=== PATIENT | female | born 1955 | race Caucasian/White ===

== ENCOUNTER → 2018-08-12 | Outpatient (CLI) | payer OTHER ==
[2018-08-12 14:26] LABS: Basophils # (A) 0.1 k/uL (0-0.2); Basophils % (A) 1 %; Eosinophils # (A) 0.1 k/uL (0-0.7); Eosinophils % (A) 2 %; HCT 43.8 % (34.0-46.0); HGB 13.9 gm/dL (11.4-16.0); Lymphocytes # (A) 2.6 k/uL (1.0-4.8); Lymphocytes % (A) 33 %; MCH 29.1 pg (25.0-35.0); MCHC 31.8 g/dL (31.0-37.0); MCV 91.5 fL (80.0-100.0); Mean Platelet Volume 8.2; Monocytes # (A) 0.4 k/uL (0-1.0); Monocytes % (A) 5 %; Neutrophils # (A) 4.4 k/uL (1.3-7.7); Neutrophils % (A) 56 %; Platelet Count 217 k/uL (150-450); RBC 4.79 m/uL (3.80-5.40); RDW 12.7 % (11.5-15.5); WBC 7.7 k/uL (3.8-10.6)
--- NOTE | 2018-08-12 14:37 | CT ---
EXAMINATION TYPE: CT brain wo con DATE OF EXAM: 08/12/2018 COMPARISON: None HISTORY: Transient global amnesia CT DLP: 961.00 mGycm Automated exposure control for dose reduction was used. TECHNIQUE: CT scan of the head is performed without contrast. FINDINGS: There is no acute intracranial hemorrhage, mass effect, or midline shift identified. Cerebellar tonsi ls are noted to be low-lying. No suspicious extra-axial fluid collection. Atherosclerosis of the intr acranial vasculature is noted. The ventricles and sulci are within normal limits in size. The globe s are intact and the visualized sinuses are clear. IMPRESSION: No acute intracranial hemorrhage, mass effect, or midline shift is seen.
[2018-08-12 14:41] LABS: ALT 25 U/L (9-52); AST 30 U/L (14-36); Albumin 4.6 g/dL (3.5-5.0); Alkaline Phosphatase 107 U/L (38-126); Anion Gap 8 mmol/L; Blood Urea Nitrogen 15 mg/dL (7-17); Calcium 9.9 mg/dL (8.4-10.2); Carbon Dioxide 29 mmol/L (22-30); Chloride 106 mmol/L (98-107); Glucose 101 mg/dL (74-99); Potassium 4.8 mmol/L (3.5-5.1); Sodium 143 mmol/L (137-145); Total Bilirubin 0.3 mg/dL (0.2-1.3)
--- NOTE | 2018-08-12 14:50 | US ---
EXAMINATION TYPE: US carotid duplex BILAT DATE OF EXAM: 08/12/2018 COMPARISON: CT brain CLINICAL HISTORY: G45.4 Transient global amnesia. Memory loss episode for 15 minutes EXAM MEASUREMENTS: RIGHT: Peak Systolic Velocity (PSV) cm/sec ----- Right CCA: 63.9 ----- Right ICA: 85.5 ----- Right ECA: 62.3 ICA/CCA ratio: 1.3 RIGHT: End Diastole cm/sec ----- Right CCA: 21.0 ----- Right ICA: 29.3 ----- Right ECA: 7.3 LEFT: Peak Systolic Velocity (PSV) cm/sec ----- Left CCA: 55.7 ----- Left ICA: 61.2 ----- Left ECA: 60.8 ICA/CCA ratio: 1.1 LEFT: End Diastole cm/sec ----- Left CCA: 18.3 ----- Left ICA: 26.0 ----- Left ECA: 9.3 VERTEBRALS (direction of flow): Right Vertebral: Antegrade Left Vertebral: Antegrade Rhythm: Normal Mild intimal wall changes noted at bilateral ICA, but PSV is wnl bilaterally. IMPRESSION: Mild degree of grayscale atheromatous plaquing with no sonographically evident hemodynam ically significant stenosis within either visualized carotid arterial system.
== END ==
LOC: RADCTMAIN 13:32
PROVIDERS: ATTEND Physician Assistant
DX: I70.90 Unspecified atherosclerosis (principal); G45.4 Transient global amnesia; R42 Dizziness and giddiness
CPT/HCPCS: 36415; 70450; 80053; 85025; 93880

== ENCOUNTER → 2024-04-04 | Outpatient (CLI) | payer MEDICARE, BC ==
--- NOTE | 2024-04-04 13:17 | XR ---
EXAMINATION TYPE: XR knee complete LT DATE OF EXAM: 04/04/2024 CLINICAL HISTORY: pain TECHNIQUE: Three views of the left knee are obtained. COMPARISON: None. FINDINGS: There is no acute fracture/dislocation. The tri-compartment joint spaces appear within no rmal limits. The overlying soft tissue appears unremarkable. IMPRESSION: There is no acute fracture or dislocation ICD 10 NO FRACTURE, INITIAL EVALUATION
--- NOTE | 2024-04-04 13:17 | XR ---
EXAMINATION TYPE: XR Hip Complete LT DATE OF EXAM: 04/04/2024 CLINICAL HISTORY: pain TECHNIQUE: AP and frogleg views of the left hip are obtained. COMPARISON: None. FINDINGS: There is no acute fracture/dislocation evident. The joint space appears within normal li mits. The overlying soft tissue appears unremarkable. IMPRESSION: 1. There is no acute fracture or dislocation.ICD 10 NO FRACTURE, INITIAL EVALUATION
== END | disposition home or self-care (01) ==
LOC: RADXRMAIN 12:21
PROVIDERS: ATTEND Family Medicine
DX: M25.552 Pain in left hip (principal); M25.562 Pain in left knee
CPT/HCPCS: 73502

== ENCOUNTER → 2024-04-04 | Outpatient (CLI) | payer MEDICARE, BC | END | disposition home or self-care (01) | LOC: RADXRMAIN 12:10 | PROVIDERS: ATTEND Family Medicine | DX: Z53.9 Procedure and treatment not carried out, unspecified reason (principal) ==

== ENCOUNTER → 2024-04-20 | Outpatient (CLI) | payer MEDICARE, BC ==
--- NOTE | 2024-04-23 16:31 | BD ---
EXAMINATION TYPE: Axial Bone Density DATE OF EXAM: 04/20/2024 CLINICAL HISTORY: 68 years old Female. ICD-10 CODE: M85.80 OTH DISRD OF BONE DENSITY Height: 66.2in Weight: 126lb FRAX RISK QUESTIONS: History of Fracture in Adulthood: yes Secondary Osteoporosis: RISK FACTORS HISTORY OF: Spine Fracture: sacrum/coccyx When: 2022 MEDICATIONS: EXAM MEASUREMENTS: Bone mineral densitometry was performed using the [employer]. Bone mineral density as measured about the Lumbar spine is: ----- L1-L4(G/cm2): 1.004 T Score Values are as follows: ----- L1: -1.3 ----- L2: -1.3 ----- L3: -1.4 ----- L4: -1.9 ----- L1-L4: -1.5 Z Score Values are as follows: ----- L1: 0.6 ----- L2: 0.6 ----- L3: 0.5 ----- L4: 0.0 ----- L1-L4: 0.4 First dexa at [facility] Bone mineral density about the R hip (g/cm2): 0.758 Bone mineral density about the L hip (g/cm2): 0.764 T Score values are as follows: -----R Neck: -2.1 -----L Neck: -2.0 -----R Total: -2.0 -----L Total: -1.9 Z Score values are as follows: -----R Neck: -0.3 -----L Neck: -0.2 -----R Total: -0.4 -----L Total: -0.4 First dexa at [facility] FRAX%s: The graph provided illustrates a 17.1% chance for a major osteoporotic fx and a 3.4% chance f or the hips probability for fx in 10 years time. IMPRESSION: Osteopenia (T Score between -2.5 and -1). There is slightly increased risk of fracture and the patient may be considered for treatment. Re-Screen 2-5 years. NOTE: T-SCORE=SD OF THE YOUNG ADULT MEAN.
== END | disposition home or self-care (01) ==
LOC: RADBDWWP 09:03
PROVIDERS: ATTEND Family Medicine
DX: M85.89 Other specified disorders of bone density and structure, multiple sites (principal)
CPT/HCPCS: 77080

== ENCOUNTER → 2024-09-06 | Outpatient (CLI) | payer MEDICARE, BC ==
[~2024-09-06] MED LIST: SODIUM CHLORIDE 0.9% 250 ML in EMPTY BAG 1 BAG IV PRN
[2024-09-06 14:10] VITALS: BP 158/68; PULSE 80; RESP 16; TEMP 98.2
[2024-09-06] MEDS: SODIUM CHLORIDE 0.9% 500 ML 500 ML in EMPTY BAG 1 BAG IV PRN (14:11)
[2024-09-06] MEDS: ZOLEDRONIC ACID 5 MG in SODIUM CHLORIDE 0.9% 100 ML IV NR (14:14)
== END ==
LOC: PROCWHC3 13:31
PROVIDERS: ATTEND Family Medicine
DX: M81.0 Age-related osteoporosis without current pathological fracture (principal)
CPT/HCPCS: 96365; J3489

== ENCOUNTER → 2025-03-22 | Outpatient (CLI) | payer MEDICARE, BC ==
[2025-03-22 12:02] LABS: African American GFR (CKD) >90 (>60 ml/min/1.73 sqM); Blood Urea Nitrogen 26 mg/dL (7-17); Non-African American GFR(CKD) 81 (>60 ml/min/1.73 sqM)
--- NOTE | 2025-03-22 12:50 | CT ---
EXAMINATION TYPE: CT angio chest DATE OF EXAM: 03/22/2025 12:34 PM COMPARISON: None CLINICAL INDICATION: Female, 69 years old with history of I27.20 PULMONARY HYPERTENSION, UNSPECIFIED; PULMONARY HYPERTENSION AND SOB. TECHNIQUE/CONTRAST: CTA scan of the thorax is performed with IV Contrast, patient injected with 100ml mL of Isovue 370, M IP images are created and reviewed these are created on a separate workstation.. CT DLP: 376.20 mGycm, Automated exposure control for dose reduction was used. FINDINGS: Lungs/Pleura: No evidence of focal consolidation, pleural effusion or pneumothorax. * 4 mm left lower lobe pulmonary nodule series 6 image 121. * Right middle lobe 4 mm nodule series 6 image 111. * Atelectasis changes in the lingula. * Few airspace opacities may be present in the left lower lobe series 6 image 96 as well as the righ t middle lobe. Airway: Large airways are patent. Heart: Size within normal limits. No significant coronary artery calcifications. Vasculature: There is no evidence for a filling defect within the pulmonary vasculature to suggest ac gonzalo pulmonary embolism. The pulmonary artery is of normal size. Mediastinum: No gross evidence of adenopathy. Musculoskeletal: No acute osseous abnormalities Soft Tissues/lymph nodes: Unremarkable. Lower neck: No significant findings. Upper Abdomen: No significant findings. IMPRESSION: 1. No evidence for aortic aneurysm, dissection or occlusion. No evidence for pulmonary embolus in th e central pulmonary vasculature. 2. The pulmonary trunk is within normal limits for size suggesting the absence of pulmonary hyperten ness. 3. 4 mm left lower lobe pulmonary nodule. Pulmonary nodules measuring less than 6 mm. Incidentally d etected nodules of this size are generally considered benign in individuals without concomitant risk factors such as smoking history or other risk factors for malignancy. Followup imaging is generally n ot performed, in accordance with Fleischner Society guidelines. In high-risk patients, a [address] thorax can be considered. 4. Few nonspecific airspace opacities correlate for developing pneumonia. [facility], , 03/22/2025 12:48 PM
== END | disposition home or self-care (01) ==
LOC: RADCTMAIN 11:00
PROVIDERS: ATTEND Family Medicine
DX: I27.20 Pulmonary hypertension, unspecified (principal); R91.8 Other nonspecific abnormal finding of lung field
CPT/HCPCS: 82565; 84520; 71275; 36415; Q9967